=== PATIENT | female | born 1990 | race Caucasian/White ===

== ENCOUNTER 2024-10-23 09:47 | Emergency (ER) | payer OTHER, SELFPAY ==
[2024-10-23 09:56] VITALS: BP 119/82; PULSE 66; RESP 16; TEMP 36.6; O2SAT 99; BMI 21.0
--- NOTE | 2024-10-23 09:58 | DI.RAD.S_ITS ---
PROCEDURE: XR RIBS RT MIN 3V W CXR 1V INDICATIONS: R rib pain, post workout 4 days ago TECHNIQUE: 2 views of the ribs were acquired, along with a single view chest. COMPARISON: None. FINDINGS: Surgical changes and devices: None. Bones and chest wall: A marker is placed upon the area of clinical concern. Within this region, no displaced rib fracture or other significant rib abnormality can be seen. No rib fractures are seen elsewhere. No suspicious bony lesions. Overlying soft tissues appear unremarkable. Lungs and pleura: No pleural effusions or pneumothorax. Lungs appear clear. Mediastinum: Mediastinal contours appear normal. Heart size is normal. IMPRESSION: No displaced rib fracture or pneumothorax. Dictated by: John Espino M.D. on 10/23/2024 at 9:24 Approved by: John Espino M.D. on 10/23/2024 at 9:25
--- NOTE | 2024-10-23 11:05 | ED_ITS ---
<Statement entered by Everette Crum DO - 10/23/24 12:43> Dr. Crum: I was immediately available in the department for consultation. Documentation has been reviewed. I agree with assessment and plan. HPI - URI/Sore Throat General Chief Complaint: Upper Respiratory Symptoms Stated Complaint: sent for x ray from [facility] rib pain Time Seen by Provider: 10/23/24 11:00 History of Present Illness HPI Narrative: Ms. Bourgeois is a very pleasant otherwise healthy 34-year-old female who presents to the emergency department for URI symptoms and right rib pain x 4 days. Patient states over the last 2 weeks she has had an upper respiratory illness causing a cough. States that she no longer feels sick but she does have an intermittent occasional cough. She was feeling better so on Friday she went to the gym and did upper body weightlifting. States that she did not develop immediate pain while weightlifting but the following day she is noticed pain in her right lower ribcage. States this area is tender to touch and painful to lay on. It also hurts when she coughs or sneezes. She denies any direct trauma to the ribcage. She denies shortness of breath, fevers, chills, history of blood clot, prescription medication use, abdominal pain, vomiting. She does not smoke. Review of Systems Review of Systems ROS Unobtainable: All systems reviewed & are unremarkable except as noted in HPI and below Exam Narrative Exam Narrative: GENERAL: 34 year old patient appears stated age. Well-developed patient, in no acute distress. HEAD: Atraumatic. Normocephalic. EYES: Extraocular motions intact. No scleral icterus. No injection or drainage. ENT: Nose without bleeding, purulent drainage. Airway patent. NECK: Trachea midline. Cervical ROM intact. CARDIOVASCULAR: Regular rate and rhythm. RESPIRATORY: ?Mild point tenderness on the anterior inferior right ribcage. No flail chest or crepitus. No deformities. Nonlabored respirations. ?Speaking in clear, full sentences. ?Clear to auscultation. Breath sounds equal bilaterally. No wheezes, rales, or rhonchi. ? GASTROINTESTINAL: Abdomen soft, non-tender, nondistended. EXTREMITIES: No edema or joint tenderness. BACK: Nontender without deformity or crepitance. NEURO: AOx3. ?Clear speech. ?Moves all 4 extremities appropriately. SKIN: No rash or erythema of visible areas Initial Vital Signs Initial Vital Signs: Vital Signs Temperature 97.8 F 10/23/24 09:56 Pulse Rate 66 10/23/24 09:56 Respiratory Rate 16 10/23/24 09:56 Blood Pressure 119/82 10/23/24 09:56 Pulse Oximetry 99 10/23/24 09:56 Oxygen Delivery Method Room Air 10/23/24 09:56 Scores PERC Score Age greater than or equal to 50 years: No Heart rate greater than or equal to 100 bpm: No Room Air O2 Sat less than 95%: No Unilateral leg swelling: No Recent trauma or surgery: No Hemoptysis: No Prior PE or DVT: No Hormone Use: No Total PERC Score: 0 Course Orders Ordered: ED Orders 10/23/24 09:58 XR ribs RT min 3V w CXR1V Stat Vital Signs Vital signs: Vital Signs - 8 hr 10/23/24 09:56 Temperature 97.8 F Pulse Rate 66 Respiratory Rate 16 Blood Pressure 119/82 Pulse Oximetry 99 Oxygen Delivery Method Room Air MDM - URI/Sore Throat Imaging Data Chest and Rt Ribs XRay: My Impression: On my independent interpretation of chest x-ray, no large pneumothorax or pleural effusion. Radiologist's Impression: PROCEDURE: XR RIBS RT MIN 3V W CXR 1V INDICATIONS: R rib pain, post workout 4 days ago TECHNIQUE: 2 views of the ribs were acquired, along with a single view chest. COMPARISON: None. FINDINGS: Surgical changes and devices: None. Bones and chest wall: A marker is placed upon the area of clinical concern. Within this region, no displaced rib fracture or other significant rib abnormality can be seen. No rib fractures are seen elsewhere. No suspicious bony lesions. Overlying soft tissues appear unremarkable. Lungs and pleura: No pleural effusions or pneumothorax. Lungs appear clear. Mediastinum: Mediastinal contours appear normal. Heart size is normal. IMPRESSION: No displaced rib fracture or pneumothorax. MDM Narrative Medical decision making narrative: Healthy 34-year-old female presents to the emergency department for right rib pain after getting over a recent URI. She still has occasional cough and recently did a chest workout. Differential diagnosis includes but is not limited to costochondritis, rib fracture, pneumonia, pneumothorax, PE, etc. On exam patient is in no acute distress, nontoxic-appearing, all vital signs within normal limits. Perc negative. Tenderness to palpation of right anterior inferior chest wall. Lung sounds clear. X-ray with no signs of abnormalities. Suspect patient's symptoms are related to costochondritis related to her post viral cough in addition to upper body workout. Recommended anti-inflammatories and follow up with PCP. Strict ER return precautions discussed. Patient declines any medication in the ER. She is stable for discharge. Discharge Plan Departure Patient Disposition: Home Clinical Impression: Costochondritis, acute Instructions: DI for Costochondritis Activity Restrictions/Additional Instructions: Dear Ms. Bourgeois, Your diagnosis today is costochondritis. Please take Ibuprofen (Motrin/Advil) or Acetaminophen (Tylenol) for pain. These are available over the counter. You may take Ibuprofen 600 mg every 8 hours with food for pain. You may also take Acetaminophen 650 mg every 4-6 hours for pain. Do not exceed 3000 mg of Tylenol a day as this can cause liver damage. Do not drink alcohol with either of these medications. You may also apply topical lidocaine patches directly to the area of your ribs that is bothering you. It is very important that you continue taking deep breaths in and out so that you use your full lung volume. Please follow up with your primary care doctor within the next 2-3 days for ER follow-up. (If you do not have a PCP you can call [phone]. ?to schedule an appointment with an [facility] Primary Care Provider) IF YOU DEVELOP ANY NEW OR WORSENING SYMPTOMS, RETURN TO THE ER! Please read the attached instructions, they highlight more specific treatments and interventions for you at home. Thank you for letting me participate in your care, Roxi Brown PA-C Stand Alone Forms: Patient Portal/API/Survey
[2024-10-23 11:25] VITALS: BP 119/80; PULSE 67; RESP 18; O2SAT 99
== END 2024-10-23 11:25 | disposition home or self-care (01) ==
PROVIDERS: Emergency Provider Physician Assistant
DX: M94.0 Chondrocostal junction syndrome [Tietze] (principal); R05.9 Cough, unspecified
CPT/HCPCS: 71101; 99281; 99283